=== PATIENT | female | born 1985 | race Hispanic/Latino ===

== ENCOUNTER 2016-11-08 15:50 | Emergency (ER) | payer BC ==
[2016-11-08 16:07] VITALS: BP 148/96; PULSE 94; RESP 18; TEMP 97.9; O2SAT 99
--- NOTE | 2016-11-08 16:08 | C.PDOC ---
History Of Present Illness 31 yo female w/PMhx of lower back pain, come in for evaluation of lower back pain gradually worse for past 2 days. Pt sts, pain is localized, " shooting across my back with movement, sitting". Pt admits, similar pain in past, " not as bad". Otherwise, pt denies known direct trauma or injury, fever, chills, abd. pain, N/V, UTI sx, saddle anesthesia, incontinence, denies weakness, deformity, sensory or vascular deficits to B?L LEs. Ambulate to ED, appears in pain. Time Seen by Provider: 11/08/16 16:08 Chief Complaint (Nursing): Back Pain History Per: Patient History/Exam Limitations: no limitations Onset/Duration Of Symptoms: Days (2), Gradual Current Symptoms Are (Timing): Worse Quality Of Discomfort: "Pain" Previous Symptoms: Back Pain (lower ) Associated Symptoms: denies: Incontinence, New Weakness, New Numbness Additional History Per: Patient Past Medical History Reviewed: Historical Data, Nursing Documentation, Vital Signs Vital Signs: Last Vital Signs Temp 97.9 F 11/08/16 16:07 Pulse 94 H 11/08/16 16:07 Resp 18 11/08/16 16:07 BP 148/96 H 11/08/16 16:07 Pulse Ox 99 11/08/16 17:30 - Medical History PMH: No Chronic Diseases Surgical History: No Surg Hx Family History: States: Unknown Family Hx Review Of Systems Constitutional: Negative for: Fever, Chills ENT: Negative for: Throat Pain Cardiovascular: Negative for: Chest Pain Respiratory: Negative for: Cough, Wheezing Gastrointestinal: Negative for: Nausea, Vomiting, Abdominal Pain Genitourinary: Negative for: Dysuria, Frequency, Incontinence, Hematuria Musculoskeletal: Positive for: Back Pain. Negative for: Neck Pain Skin: Negative for: Rash Neurological: Negative for: Weakness, Numbness, Altered Mental Status, Headache , Dizziness Physical Exam - Physical Exam Appears: Well, Non-toxic, No Acute Distress Skin: Normal Color, Warm, Dry, No Rash, No Ecchymosis Eye(s): bilateral: PERRL Throat: No Erythema Neck: Supple Gastrointestinal/Abdominal: Soft, No Tenderness, No Distention, No Guarding Back: No CVA Tenderness, No Vertebral Tenderness, Decreased ROM (of L-spine due to pain), Paraspinal Tenderness (diffuse lumbar, no midline tenderness, no skin changes.), Straight Leg Raising (B/L at 60 degrees) Extremity: Normal ROM, No Pedal Edema, No Calf Tenderness (B/L), No Deformity, No Swelling Neurological/Psych: Oriented x3, Normal Speech, Normal Motor, Normal Sensation, Normal Reflexes ED Course And Treatment - Laboratory Results Urine POC: Negative O2 Sat by Pulse Oximetry: 99 (on RA) Pulse Ox Interpretation: Normal Progress Note: labs and LS Spine AP/LAT ordered and reviewed. Patient received Ultram PO and Valium PO. On re-evaluation, pt is AAO#3, not in any apparent distress. Afebrile, hemodynamicaly stable. Non-toxic. Ambulatory in ED with stable gait. ENT: no acute findings. neck: Supple. Lungs: CTA B/L, BS equal B /L. ABd: benitgn, (-)guarding, (-) rebound. Back: (-) CVA tenderness. FAROM of B/L UEs and LEs, no neurovascular deficits. Pt was offered L-spine xray- refused at present time. Pt has clinical findings c/w lumbar spine strain. Pt advised and Ref. to F/u with PMD in 1-2 days for re-eval. return to ED if any worsening or new changes. Disposition Counseled Patient/Family Regarding: Diagnosis, Need For Followup, Rx Given - Disposition Referrals: Tracey Marrufo PA-C [Advanced Practice Nurse] - Disposition: HOME/ ROUTINE Disposition Time: 17:02 Condition: STABLE Additional Instructions: Bedrest for 2-3 days Take pain medication as prescribed as need for pain Follow up with PMD in 2-3 days for re-evaluation, MRI of L-spine. Return to ED if any worsening or new changes. Prescriptions: diaZEpam [Valium] 5 mg PO HS #4 tab Methocarbamol [Robaxin] 500 mg PO TID #20 tab traMADol [Ultram] 50 mg PO TID #7 tab Instructions: Back Pain (ED) Forms: [facility] (Guatemalan) - Clinical Impression Clinical Impression: Low back strain - PA / [employer] / Resident Statement MD/DO has reviewed & agrees with the documentation as recorded. - Scribe Statement The provider has reviewed the documentation as recorded by the Scribe (Shelley Morales) All medical record entries made by the Scribe were at my direction and personally dictated by me. I have reviewed the chart and agree that the record accurately reflects my personal performance of the history, physical exam, medical decision making, and the department course for this patient. I have also personally directed, reviewed, and agree with the discharge instructions and disposition.
[2016-11-08 17:13] LABS: RBC URINE < 1 /hpf (0-3); URINE BACTERIA RARE (<OCC); URINE BILIRUBIN NEGATIVE (NEGATIVE); URINE BLOOD NEGATIVE (NEGATIVE); URINE COLOR Yellow (YELLOW); URINE GLUCOSE (UA) NORMAL (Normal); URINE KETONE NEGATIVE (NEGATIVE); URINE LEUKOCYTE ESTERASE NEG Leu/uL (Negative); URINE PROTEIN NEGATIVE (NEGATIVE); URINE UROBILINOGEN NORMAL mg/dL (0.2-1.0); WBC URINE 2 /hpf (0-5)
== END 2016-11-08 17:47 | disposition home or self-care (01) ==
LOC: C.ER 15:50
DX: S39.012A Strain of muscle, fascia and tendon of lower back, initial encounter (principal); X58.XXXA Exposure to other specified factors, initial encounter